=== PATIENT | male | born 1960 | race Caucasian/White ===

== ENCOUNTER 2025-05-15 21:37 | Emergency (ER) | payer BC, MEDICARE ==
[2025-05-15] MEDS ORDERED: Dexamethasone 10 MG/ML VIAL ONE (23:23)
[2025-05-15] MEDS ORDERED: Acetaminophen 500 MG TAB ONE (23:24)
[2025-05-15] MEDS ORDERED: Ketorolac Tromethamine 30 MG (1 mL) VIAL ONE (23:26)
[2025-05-15 23:40] LABS: #Basophils 0.13 10x3/uL (0.0-0.2); #Eosinophils 0.47 10x3/uL (0.0-0.5); #Monocytes 0.76 10x3/uL (0.0-1.1); #Neutrophils 4.76 10x3/uL (1.5-8.4); %Basophils 1.7 % (0.0-2.0); %Eosinophils 6.1 % (0.0-6.0); %Lymphocytes 20.2 % (18.0-47.0); %Monocytes 9.9 % (0.0-10.0); %Neutrophils 61.8 % (40.0-75.0); Hematocrit 40.9 % (38.8-50.0); Hemoglobin 14.2 g/dL (13.5-17.5); Mean Corpuscular Hemoglobin 31.5 pg (27.0-33.0); Mean Corpuscular Volume 90.7 fL (81.2-95.1); Platelet Count 241 10x3/uL (150-450); Red Blood Cell (RBC) Count 4.51 10x6/uL (4.32-5.72); White Blood Cell (WBC) Count 7.69 10x3/uL (3.5-10.5)
[2025-05-15 23:52] LABS: ALT (SGPT) 18 U/L (Less than 45); AST (SGOT) 27 U/L (11-34); Albumin 4.1 g/dL (3.1-4.5); Alkaline Phosphatase 64 U/L (40-110); Anion Gap 12 mmol/L (10-20); BUN (Urea Nitrogen) 22 mg/dL (8.4-25.7); Bilirubin, Total 0.3 mg/dL (0.3-1.2); Calc. Creatinine Clearance 0 mL/min (70-130); Calcium 9.0 mg/dL (7.8-10.44); Carbon Dioxide 24 mmol/L (23-31); Chloride 107 mmol/L (98-107); Globulin 2.6 g/dL (2.4-3.5); Glucose 125 mg/dL (80-115); Potassium 4.2 mmol/L (3.5-5.1); Sodium 139 mmol/L (136-145)
== END 2025-05-16 03:02 | disposition home or self-care (01) ==
LOC: CSHERS 21:37
DX: M54.50 Low back pain, unspecified (principal); X50.0XXA Overexertion from strenuous movement or load, initial encounter
CPT/HCPCS: 36415; 72131; 80053; 85025; 96374; 96375; J1100; J1885; J2272; J3010